=== PATIENT | female | born 1990 | race Caucasian/White ===

== ENCOUNTER → 2017-05-22 13:54 | Outpatient (CLI) | payer OTHER, SELFPAY ==
[2017-05-22 15:46] LABS: Color, Urine Yellow (Yellow); Glucose, Dipstick Normal (Normal); Ketone-Dipstick Negative (Negative); Leukocyte Esterase-Dipstick 25 /ul (Negative); Nitrite-Dipstick Negative (Negative); Occult Blood-Urine Negative /ul (Negative); Protein-Dipstick Negative (Negative); Specific Gravity, Urine 1.025 (1.002-1.030); Urine Bilirubin Dipstick Negative (Negative); Urine Clarity Turbid (Clear); Urine Urobilinogen Normal (Normal)
[2017-05-22 16:02] LABS: Thyroid Stim Hormone (TSH) 1.32 uIU/mL (0.358-3.74)
[2017-05-22 16:12] LABS: Absolute Lymphocyte Count 1.78 X10^3/ul (0.83-4.51); Basophil# 0.01 X10^3/uL; Basophil% 0.1 % (0-1); Eosinophil# 0.06 X10^3/uL; Eosinophils% 0.7 % (0-5); Hematocrit 39.7 % (37-47); Hemoglobin 13.7 g/dl (12.0-15.0); Lymphocyte # 1.78 X10^3/ul (4.0); Mean Corp Hgb Conc 34.5 g/gl (32-36); Mean Corpuscular Hgb 28.5 pg (27.0-32.0); Mean Corpuscular Volume 82.7 fL (81-99); Mean Platelet Vol. 10.4 fl (6.2-12.0); Monocyte# 0.61 X10^3/uL; Monocyte% 7.2 % (0-10); Neutrophil # 5.99 X10^3/uL (2.7-7.7); Neutrophil % 70.8 % (47-70); Platelet Count 236 K/mm3 (150-450); RBC Distribution Width CV 12.5 % (11.6-14.6); RBC Distribution Width SD 37.6 fl (35.1-43.9); White Blood Count 8.5 K/mm3 (4.4-11.0)
[2017-05-22 16:50] LABS: POSITIVE COUNT NO; POSITIVE DIFFERENTIAL NO; POSITIVE MORPHOLOGY NO
[2017-05-22 16:57] LABS: HIV - WCH Non-Reactive (Nonreactive); Rubella IgG > 500.0 IU/mL
[2017-05-22 17:49] LABS: Chlamydia Trachomatis by PCR Negative (Negative); Neisserai gonorrhoeae by PCR Negative (Negative); Probe Check PASS; Sample Adequacy Control PASS; Specimen Processing Control PASS
[2017-05-23 10:57] LABS: HEPATITIS B SURFACE AG Negative (Negative); Hep C Antibodies <0.1 s/co ratio (0.0-0.9)
[2017-05-24 13:10] LABS: HPV Reflexed? NOT INDICATED
[2017-05-26 03:45] LABS: Prenatal RPR NONREACTIVE (NONREACTIVE)
== END ==
PROVIDERS: Visit Provider Obstetrics & Gynecology
DX: Z34.82 Encounter for supervision of other normal pregnancy, second trimester (principal)
CPT/HCPCS: 36415; 81002; 84443; 85025; 86703; 86762; 86803; 87340; 87491; 87591; 88175; G0145

== ENCOUNTER → 2017-09-13 14:12 | Outpatient (CLI) | payer OTHER, SELFPAY ==
[2017-09-13 15:54] LABS: Glucose Challenge Gest 1H 50g 148 mg/dL (70-140)
[2017-09-13 15:56] LABS: Hemoglobin 12.3 g/dl (12.0-15.0); Mean Corp Hgb Conc 34.2 g/gl (32-36); Mean Corpuscular Hgb 29.4 pg (27.0-32.0); Mean Corpuscular Volume 86.1 fL (81-99); Platelet Count 236 K/mm3 (150-450); RBC Distribution Width CV 12.3 % (11.6-14.6); Red Blood Count 4.18 M/mm3 (4.2-5.4); White Blood Count 8.4 K/mm3 (4.4-11.0)
[2017-09-13 15:59] LABS: Scan Indicated on CBC? Y/N NO
== END ==
PROVIDERS: Visit Provider Obstetrics & Gynecology
DX: Z34.83 Encounter for supervision of other normal pregnancy, third trimester (principal)
CPT/HCPCS: 36415; 82950; 85027

== ENCOUNTER → 2017-09-21 06:44 | Outpatient (CLI) | payer OTHER, SELFPAY ==
[2017-09-21 07:37] LABS: Glucose GTT-Gestation. Fasting 74 mg/dL (<105)
[2017-09-21 08:52] LABS: Glucose GTT-Gestational 1 Hr 141 mg/dL (<190)
[2017-09-21 09:58] LABS: Glucose GTT-Gestational 2 Hr 145 mg/dL (<165)
[2017-09-21 11:30] LABS: Glucose GTT-Gestational 3 Hr 88 L (<145)
== END ==
PROVIDERS: Family Provider Family Medicine; PCP Family Medicine; Visit Provider Obstetrics & Gynecology
DX: O24.912 Unspecified diabetes mellitus in pregnancy, second trimester (principal); Z3A.00 Weeks of gestation of pregnancy not specified
CPT/HCPCS: 36415; 82951; 82952

== ENCOUNTER 2017-11-01 02:50 | Inpatient (IN) | payer SELFPAY, OTHER ==
[2017-11-01] VITALS (7 sets, daily range): BP systolic 99–108; BP diastolic 52–63; PULSE 71–89; RESP 16–18; TEMP 36.1–36.7; O2SAT 96–97; BMI 35.9
[2017-11-01] MEDS: Lactated Ringers 1,000 ML 50 ML IV (03:35)
[2017-11-01 03:42] LABS: ROM Internal Control Test YES-OK TO RESULT pt. (Internal QC); ROM Patient Test POSITIVE (Negative)
[2017-11-01 03:49] LABS: Hematocrit 37.9 % (37-47); Hemoglobin 12.7 g/dl (12.0-15.0); Mean Corp Hgb Conc 33.5 g/gl (32-36); Mean Corpuscular Hgb 28.2 pg (27.0-32.0); Mean Corpuscular Volume 84.2 fL (81-99); Platelet Count 163 K/mm3 (150-450); RBC Distribution Width CV 12.8 % (11.6-14.6); RBC Distribution Width SD 38.9 fl (35.1-43.9); White Blood Count 9.6 K/mm3 (4.4-11.0)
[2017-11-01 03:50] LABS: Scan Indicated on CBC? Y/N NO
[2017-11-01] MEDS: Oxytocin 30 units/NS 500 ml 30 UNITS/500 ML IV.SOLN 334 UNITS IV (03:58)
--- NOTE | 2017-11-01 04:08 | PCM.OB.VAG ---
Vaginal Delivery Maternal Presentation: Active Labor active labor SROM Amniotic Membrane Rupture Type: Spontaneous at home Amniotic Fluid Description: Clear Final ANDREA: 11/28/17 Gestational age: 36 Weeks and 1 Days Date of Procedure: 11/01/17 Pre-Operative Diagnosis: 36 1/7 wk EGA labor Post-Operative Diagnosis: same Surgery/ Procedure Performed: Spontaneous Vaginal Delivery Type of Anesthesia: None Description of Procedure: Rapid progress to anterior lip then to complete with urge to push. No time for epidural. Rodriguez viable male Ap 10/22. Head delivered BETHANY. No nuchal cord. Shoulders delivered easily. Infant to maternal abdomen. Cord clamped x two and cut. PP exam: 1st deg posterior vaginal laceration. hemostatic and no repair required. no other lacerations. Placenta delivered by spont expulsion, expression 3V cord, normal appearing, intact with trailing membranes. EBL 300 Pt and infant tolerated delivery well. To recovery. Stable condition Ray Tech counts correct x two. Presentation: Vertex, BETHANY Placental Delivery Description: Spontaneous, Expressed Placenta Disposition: [facility] Cord Vessel Description: 3 Vessels Cord Entanglement: None Estimated Blood Loss: 300 A gender: Male (1 minute): 8 (5 minute): 9 Episiotomy Description: None Laceration: Midline, Perineal Extension/lac, 1st degree Medications given after delivery: IV Pitocin Complications: None
[2017-11-01] MEDS: Oxytocin 30 units/NS 500 ml 30 UNITS/500 ML IV.SOLN 167 UNITS IV (04:30)
[2017-11-01 04:42] LABS: Group B Strep DNA By PCR Negative (Negative); Internal Control PASS; Probe Check PASS; Specimen Processing Control PASS
[2017-11-01] MEDS: Ibuprofen 600 MG Tablet PO ×3 (05:00→23:26)
--- NOTE | 2017-11-01 08:24 | PCM.DCVAG ---
Discharge Diet: No Restrictions Discharge Activity: May Shower, May Take a Tub Bath May resume sexual activity in: 4-6 weeks Additional Activity Instructions:: Nothing in the vagina for 4-6 weeks. You may return to work/school in 6 weeks. Additional Instructions: If you experience any of the following, contact your healthcare provider. Bleeding that soaks a pad every hour for 2 hours Fever 100.4 or higher Unrelieved abdominal pain Problems urinating (including inability to urinate or burning while urinating). Visual changes Severe headache Flu-like symptoms Pain or redness in one of both of your breasts Pain, warmth, tenderness or swelling in your legs, especially the calf area Frequent nausea and vomiting Symptoms of depression or anxiety If you experience any of the following, call 911 or go to the nearest Emergency Room. Chest pain Problems breathing Seizure activity Partial or complete paralysis of a body part, slurred speech, weakness or drooping of the face, or a sudden inability to walk or hold your balance Allergies/Adverse Reactions: Allergies No Known Allergies Allergy (Verified 11/01/17 03:40) Medications to take at Discharge Vits [Prenatabs FA] 1 tablet PO DAILY 11/01/17 Please Follow Up With: Justin Alcantara MD - [phone] When: Call to make an appointment with your doctor in 6 weeks. Primary Care Physician: Hiren Burks DO [Primary Care Provider] - Test Results: Test results from this visit will be discussed in further detail at your follow-up appointment, if applicable. Proposed Discharge Date: 11/03/17
--- NOTE | 2017-11-01 08:25 | DCINST_ITS ---
Discharge Diet: No Restrictions Discharge Activity: May Shower, May Take a Tub Bath May resume sexual activity in: 4-6 weeks Additional Activity Instructions:: Nothing in the vagina for 4-6 weeks. You may return to work/school in 6 weeks. Additional Instructions: If you experience any of the following, contact your healthcare provider. * Bleeding that soaks a pad every hour for 2 hours * Fever 100.4 or higher * Unrelieved abdominal pain * Problems urinating (including inability to urinate or burning while urinating) . * Visual changes * Severe headache * Flu-like symptoms * Pain or redness in one of both of your breasts * Pain, warmth, tenderness or swelling in your legs, especially the calf area * Frequent nausea and vomiting * Symptoms of depression or anxiety If you experience any of the following, call 911 or go to the nearest Emergency Room. * Chest pain * Problems breathing * Seizure activity * Partial or complete paralysis of a body part, slurred speech, weakness or drooping of the face, or a sudden inability to walk or hold your balance Allergies/Adverse Reactions: Allergies No Known Allergies Allergy (Verified 11/01/17 03:40) Medications to take at Discharge Vits [Prenatabs FA] 1 tablet PO DAILY 11/01/17 Please Follow Up With: Justin Alcantara MD - [phone] When: Call to make an appointment with your doctor in 6 weeks. Primary Care Physician: Hiren Bursk DO [Primary Care Provider] - Test Results: Test results from this visit will be discussed in further detail at your follow- up appointment, if applicable. Proposed Discharge Date: 11/03/17
[2017-11-01] MEDS: Prenatal Vits Tablet 1 TABLET PO (10:15)
[2017-11-01] MEDS: Acetaminophen 500 MG Tablet 1000 MG PO (11:45)
--- NOTE | 2017-11-01 13:13 | NURSING ---
this nursing assistant reviewed the charting completed by Kana Hernandez.
[2017-11-01] MEDS: Senna/Docusate Sodium 1 Tablet PO (21:11)
[2017-11-02 03:15] VITALS: BP 101/50; PULSE 68; RESP 18; TEMP 36.1
[2017-11-02] MEDS: Acetaminophen 500 MG Tablet 1000 MG PO (04:13)
[2017-11-02] MEDS: Ibuprofen 600 MG Tablet PO ×2 (07:52→14:50)
[2017-11-02 08:00] VITALS: BP 94/53; PULSE 71; RESP 18; TEMP 36.2; O2SAT 96
--- NOTE | 2017-11-02 08:22 | ED.RN ---
Nurse was notified of low blood pressure and tempt. during 8'oclock vital signs.
[2017-11-02] MEDS: Prenatal Vits Tablet 1 TABLET PO (11:56)
--- NOTE | 2017-11-02 12:01 | PCM.PN.OB ---
Subjective: Patient without complaints. Breast-feeding going well. Wants to go home later today if baby is able to go. - Physical Exam Vital Signs Temp Pulse Resp BP Pulse Ox 97.2 F L 71 18 94/53 L 96 11/02/17 08:00 11/02/17 08:00 11/02/17 08:00 11/02/17 08:00 11/02/17 08:00 Oxygen Delivery Method Room Air Weight: 203 lb 0.732 oz Body Mass Index (BMI) 35.9 Intake and Output for Last 24 Hours 10/31/17 11/01/17 11/02/17 23:59 23:59 23:59 Output Total 850 / 850 Balance -850 / -850 Medical Necessity - Tobacco Use Smoking Status: Never smoker Assessment/Plan Doing well day #1. Will release to home later today with routine instructions if baby is able to go home.
[2017-11-02 14:00] VITALS: BP 103/58; PULSE 75; RESP 16; TEMP 36.2; O2SAT 95
--- NOTE | 2017-11-02 14:42 | CASEMGMT ---
Social Work Brief Assessment - Labor and Delivery Unit Date of Referral/Notification: 11/01/2017 Time of Referral: 0753 Referred By: Dr. Gallego Reason for Referral: maternal history of depression Date of Intervention: 11/02/2017 Time of Intervention: 1130 Informant: Medical record and mother of baby (MOB) History: JONATHAN is a 27-year-old [facility] female, delivering her 4th child on 11-01-17. Child is to be named Aries Delgado. MOB is G5, P3 to 4, with one first trimester loss in 2014. Other children at home include: Sae (born 12/2010), Juan Manuel (born 01/2013), and Mavis (born 02/2016). MOB is to father of baby (FOB) Matteo Delgado, age 30. MOB and FOB have been for 8 years. MOB reports this with Aries was a surprise. care late and limited in the OBGYN office, with one visit and ultrasound at 21 weeks. MOB has an 8th grade education as is the norm in the [facility]. MOB reports ability to read, write, and to understand what is read. FOB is self-employed, owns a [employer] shop. MOB reports depression after of Sae, reports that ended up taking some natural supplements which helped, as well as talking to MOBs mother, sister, an aunt, and a friend. MOB report now, after of last two children MOB reports at first sign of hormonal imbalance will start to take the supplements, have the friend pray for MOB, and MOB seeks support from others. MOB reports this seems to help. MOB denies that was ever suicidal, nor any history of attempts. Assessment: MOB reports that was shocked when found out about and admit that felt overwhelmed with this information as MOBs daughter was only about a year old. MOB reports once started to feel Aries move and had the ultrasound, things became more exciting and MOB felt better about the . MOB reports to love Aries, reports to love being a mother and having children. MOB reports to have needed supplies for the baby, including a safe sleep space and car seat for baby. MOB reports will have a helper at home for 6 weeks, and that when FOB is home that FOB is a great help with the children. MOB denies any safety concerns at home or with . MOB open to discussion about depression today, as evidenced by engaging in conversation and listening and giving feedback when certified social workers in health care discussed risks present for MOB and importance of self-care. MOB reports to have a great support system and has no problems using her support system if in need of extra support. MOB reports to know about safe sleeping and gave appropriate response about shaken baby prevention. MOB accepting of depression packet this display card writer provided today. MOB with bright affect, appropriate mood, good eye contact, spontaneous conversation, and relaxed motor activity. Baby laid on MOBs lap, and MOB looked at baby intermittently as well as was gentle. Plan: MOB and baby to home with family support. MOB has been given depression packet including local resources for help should MOB want to pursue extra help in the future. No further needs requested or indicated. -RORY Romo, DISPENSING OPERATOR
== END 2017-11-02 17:55 | disposition home or self-care (01) | DRG 775 ==
PROVIDERS: Admitting Provider Obstetrics & Gynecology; Family Provider Family Medicine; PCP Family Medicine; Visit Provider Obstetrics & Gynecology
DX: O42.013 Preterm premature rupture of membranes, onset of labor within 24 hours of rupture, third trimester (principal); O60.14X0 Preterm labor third trimester with preterm delivery third trimester, not applicable or unspecified; O62.3 Precipitate labor; O70.0 First degree perineal laceration during delivery; Z37.0 Single live birth; Z3A.36 36 weeks gestation of pregnancy
CPT/HCPCS: 59025; 59050; 84112; 85027; 86850; 86900; 87081; 87653; 99218; J7120; G0378